=== PATIENT | female | born 1995 | race Asian ===

== ENCOUNTER 2016-06-23 23:32 | Emergency (ER) | payer SELFPAY ==
[~2016-06-23] VITALS: Ht 167.6 cm; Wt 96.4 kg
[2016-06-24 02:52] VITALS: BP 148/90
== END 2016-06-24 03:07 | disposition home or self-care (01) ==
LOC: EMS 23:34
DX: J20.9 Acute bronchitis, unspecified (principal)
CPT/HCPCS: 99283